=== PATIENT | female | born 1950 ===

== ENCOUNTER → 2017-05-20 | Outpatient (REF) | payer MEDICARE | LOC: ZZSENDIN 12:00 | PROVIDERS: ATTEND Internal Medicine | DX: R31.9 Hematuria, unspecified (principal); B99.9 Unspecified infectious disease; F03.90 Unspecified dementia, unspecified severity, without behavioral disturbance, psychotic disturbance, mood disturbance, and anxiety; E11.9 Type 2 diabetes mellitus without complications | CPT/HCPCS: 88108 ==